=== PATIENT | male | born 1950 | race Caucasian/White ===

== ENCOUNTER 2022-07-27 15:44 | Emergency (ER) | payer MEDICARE, BC ==
[2022-07-27 15:55] VITALS: TEMP 97.6
[2022-07-27] MEDS ORDERED: SODIUM CHLORIDE 0.9% 1,000 ML IV STA (16:26)
[2022-07-27] MEDS ORDERED: KETOROLAC 15 MG/ML 1 ML VIAL IVP STA (16:26)
[2022-07-27] MEDS ORDERED: ONDANSETRON 4 MG/2 ML VIAL IVP STA (16:26)
[2022-07-27 17:34] LABS: Albumin 4.2 g/dL (3.5-5.0); Calcium 9.2 mg/dL (8.4-10.2); HCT 43.8 % (39.0-53.0); HGB 15.6 gm/dL (13.0-17.5); MCH 32.8 pg (25.0-35.0); MCHC 35.6 g/dL (31.0-37.0); MCV 92.2 fL (80.0-100.0); Platelet Count 176 k/uL (150-450); Potassium 3.6 mmol/L (3.5-5.1); RBC 4.75 m/uL (4.30-5.90); RDW 12.4 % (11.5-15.5); Total Protein 6.6 g/dL (6.3-8.2); WBC 8.7 k/uL (3.8-10.6)
[2022-07-27 17:42] LABS: Partial Thromboplastin Time 22.4 sec (22.0-30.0); Prothrombin Time 10.9 sec (9.0-12.0)
[2022-07-27 18:06] LABS: Band Neutrophils % 2 %; Eosinophils # (M) 0.26 k/uL (0-0.7); Lymphocytes # (M) 0.17 k/uL (1.0-4.8); Monocytes # (M) 0.44 k/uL (0-1.0); Neutrophils % (M) 88 %; Nucleated Red Blood Cells 0 /100 WBC (0-0); Total Cells Counted 100
--- NOTE | 2022-07-27 18:14 | US ---
EXAMINATION TYPE: US gallbladder DATE OF EXAM: 07/27/2022 COMPARISON: NONE CLINICAL HISTORY: RUQ/epigastric pain, "gallbladder attack". RUQ pain x 2 days. Patient states he has had GB issues before TECHNIQUE: Multiple sonographic images of the right upper quadrant are obtained. FINDINGS: EXAM MEASUREMENTS: Liver Length: 16.2 cm Gallbladder Wall: 0.31 cm CBD: 1.2 cm Right Kidney: 11.1 x 5.8 x 5.8 cm ACUTE COORDINATOR NOTES: Pancreas: Obscured by bowel gas Liver: wnl Gallbladder: Echogenic material seen inside gallbladder. Possible hypervascular around the wall? Evidence for sonographic Sims's sign: No CBD: Dilated measuring over 1 cm Right Kidney: Cyst visualized mid pole measuring 2.2 x 2.4 x 2.2cm IMPRESSION: There is some echogenic bile. Gallbladder is large with minimal gallbladder wall thickening. This cou ld be some gallbladder dysfunction. Large common bile duct consistent with gallbladder dysfunction.
[2022-07-27 19:42] VITALS: BP 148/96; PULSE 82; RESP 18
[2022-07-27] MEDS ORDERED: PIPERACILLIN-TAZOBACTAM 3.375 GM in SODIUM CHLORIDE 0.9% 100 ML IVPB STA (19:42)
[2022-07-27 20:08] LABS: Appearance,Urine Clear (Clear); Bilirubin,Urine Negative (Negative); Blood,Urine Negative (Negative); Color,Urine Yellow; Glucose,Urine (UA) Negative (Negative); Ketones,Urine Negative (Negative); Leukocyte Esterase,Urine Negative (Negative); Nitrite,Urine Negative (Negative); Protein,Urine Negative (Negative); Specific Gravity,Urine 1.011 (1.001-1.035); Urobilinogen,Urine <2.0 mg/dL (<2.0)
--- NOTE | 2022-07-27 21:03 | ED ---
Abdominal Pain HPI - General Chief Complaint: Abdominal Pain Stated Complaint: gallbladder attack Time Seen by Provider: 07/27/22 16:16 Source: patient Mode of arrival: ambulatory Limitations: no limitations - History of Present Illness Initial Comments: Patient is a 72-year-old male presenting with chief complaint of right upper quadrant pain. Patient has history of "gallbladder attacks", states that on previous ultrasound from years ago there was gallbladder sludge noted and patient was informed that he may need to have his gallbladder taken out if he continues to have issues. Patient states that over the last 2 days he has had an increasing amount of sudden onset of pain. Patient states that at this time he is not having any pain. He admits to nausea with vomiting. No fever or chills. No back pain. No chest pain or difficulty breathing. No diarrhea, hematochezia, melena. No dysuria or hematuria. No palpitations or weakness. - Related Data Allergies Allergy/AdvReac Type Severity Reaction Status Date / Time No Known Allergies Allergy Verified 07/27/22 15:55 Review of Systems ROS Statement: Those systems with pertinent positive or pertinent negative responses have been documented in the HPI. ROS Other: All systems not noted in ROS Statement are negative. Past Medical History Past Medical History: Hypertension Additional Past Medical History / Comment(s): high cholestrol, DVT. GOUT History of Any Multi-Drug Resistant Organisms: None Reported Past Surgical History: No Surgical Hx Reported Past Psychological History: No Psychological Hx Reported Smoking Status: Never smoker Past Alcohol Use History: Occasional Past Drug Use History: None Reported General Exam Limitations: no limitations General appearance: alert, in no apparent distress Head exam: Present: atraumatic, normocephalic, normal inspection Eye exam: Present: normal appearance Neck exam: Present: normal inspection Respiratory exam: Present: normal lung sounds bilaterally. Absent: respiratory distress, wheezes, rales, rhonchi, stridor Cardiovascular Exam: Present: regular rate, normal rhythm, normal heart sounds. Absent: systolic murmur, diastolic murmur, rubs, gallop, clicks GI/Abdominal exam: Present: soft. Absent: distended, tenderness, guarding, rebound, rigid Neurological exam: Present: alert, oriented X3, CN II-XII intact Psychiatric exam: Present: normal affect, normal mood Skin exam: Present: warm, dry, intact, normal color. Absent: rash Course Vital Signs 07/27/22 07/27/22 15:50 19:39 Temperature 97.6 F Pulse Rate 99 82 Respiratory 16 18 Rate Blood Pressure 138/81 148/96 O2 Sat by Pulse 98 99 Oximetry Medical Decision Making - Medical Decision Making Patient is a 72-year-old male with history of present hypertension, hyperlipidemia, gout presenting with chief complaint of right upper quadrant pain. Patient has had episodes of right upper quadrant pain over the last 2 days. No pain at time of presentation. Admits to nausea with no vomiting. On physical examination heart and lungs are clear to auscultation, abdomen is soft, nontender, nondistended. Lab work shows bilirubin 6.0; AST 70; ALT of 452. Alkaline phosphatase 138. Ultrasound shows some echogenic bile gallbladder is large with minimal gallbladder wall thickening, gallbladder wall shows possible hypervascularity. Common bile duct is dilated over 1 cm. Patient will require GI services, we have no GI coverage at this time. [facility] is accepting transfer at this time. I spoke with Dr. Damico customer account specialist. Dr. Hernandez is the accepting physician. Patient is agreeable with this plan. I di scussed this case with my attending Dr. Allison. - Lab Data Result diagrams: 07/27/22 16:59 07/27/22 16:59 Lab Results 07/27/22 07/27/22 07/27/22 Range/Units 16:59 16:59 16:59 WBC 8.7 (3.8-10.6) k/uL RBC 4.75 (4.30-5.90) m/uL Hgb 15.6 (13.0-17.5) gm/dL Hct 43.8 (39.0-53.0) % MCV 92.2 (80.0-100.0) fL MCH 32.8 (25.0-35.0) pg MCHC 35.6 (31.0-37.0) g/dL RDW 12.4 (11.5-15.5) % Plt Count 176 (150-450) k/uL MPV 7.0 Neutrophils % (Manual) 88 % Band Neuts % (Manual) 2 % Lymphocytes % (Manual) 2 % Monocytes % (Manual) 5 % Eosinophils % (Manual) 3 % Neutrophils # (Manual) 7.80 H (1.3-7.7) k/uL Lymphocytes # (Manual) 0.17 L (1.0-4.8) k/uL Monocytes # (Manual) 0.44 (0-1.0) k/uL Eosinophils # (Manual) 0.26 (0-0.7) k/uL Nucleated RBCs 0 (0-0) /100 WBC Manual Slide Review Performed PT 10.9 (9.0-12.0) sec INR 1.0 (<1.2) APTT 22.4 (22.0-30.0) sec Sodium 138 (137-145) mmol/L Potassium 3.6 (3.5-5.1) mmol/L Chloride 102 (98-107) mmol/L Carbon Dioxide 28 (22-30) mmol/L Anion Gap 8 mmol/L BUN 17 (9-20) mg/dL Creatinine 1.05 (0.66-1.25) mg/dL Est GFR (CKD-EPI)AfAm 81 (>60 ml/min/1.73 sqM) Est GFR (CKD-EPI)NonAf 70 (>60 ml/min/1.73 sqM) Glucose 121 H (74-99) mg/dL Plasma Lactic Acid Bulmaro (0.7-2.0) mmol/L Calcium 9.2 (8.4-10.2) mg/dL Total Bilirubin 6.0 H (0.2-1.3) mg/dL AST 701 H (17-59) U/L ALT 452 H (4-49) U/L Alkaline Phosphatase 138 H (38-126) U/L Troponin I (0.000-0.034) ng/mL Total Protein 6.6 (6.3-8.2) g/dL Albumin 4.2 (3.5-5.0) g/dL Amylase 65 (30-110) U/L Lipase 155 (23-300) U/L Urine Color Urine Appearance (Clear) Urine pH (5.0-8.0) Ur Specific [place] (1.001-1.035) Urine Protein (Negative) Urine Glucose (UA) (Negative) Urine Ketones (Negative) Urine Blood (Negative) Urine Nitrite (Negative) Urine Bilirubin (Negative) Urine Urobilinogen (<2.0) mg/dL Ur Leukocyte Esterase (Negative) 07/27/22 07/27/22 07/27/22 Range/Units 16:59 16:59 17:01 WBC (3.8-10.6) k/uL RBC (4.30-5.90) m/uL Hgb (13.0-17.5) gm/dL Hct (39.0-53.0) % MCV (80.0-100.0) fL MCH (25.0-35.0) pg MCHC (31.0-37.0) g/dL RDW (11.5-15.5) % Plt Count (150-450) k/uL MPV Neutrophils % (Manual) % Band Neuts % (Manual) % Lymphocytes % (Manual) % Monocytes % (Manual) % Eosinophils % (Manual) % Neutrophils # (Manual) (1.3-7.7) k/uL Lymphocytes # (Manual) (1.0-4.8) k/uL Monocytes # (Manual) (0-1.0) k/uL Eosinophils # (Manual) (0-0.7) k/uL Nucleated RBCs (0-0) /100 WBC Manual Slide Review PT (9.0-12.0) sec INR (<1.2) APTT (22.0-30.0) sec Sodium (137-145) mmol/L Potassium (3.5-5.1) mmol/L Chloride (98-107) mmol/L Carbon Dioxide (22-30) mmol/L Anion Gap mmol/L BUN (9-20) mg/dL Creatinine (0.66-1.25) mg/dL Est GFR (CKD-EPI)AfAm (>60 ml/min/1.73 sqM) Est GFR (CKD-EPI)NonAf (>60 ml/min/1.73 sqM) Glucose (74-99) mg/dL Plasma Lactic Acid Bulmaro 1.5 (0.7-2.0) mmol/L Calcium (8.4-10.2) mg/dL Total Bilirubin (0.2-1.3) mg/dL AST (17-59) U/L ALT (4-49) U/L Alkaline Phosphatase (38-126) U/L Troponin I <0.012 (0.000-0.034) ng/mL Total Protein (6.3-8.2) g/dL Albumin (3.5-5.0) g/dL Amylase (30-110) U/L Lipase (23-300) U/L Urine Color Yellow Urine Appearance Clear (Clear) Urine pH 7.0 (5.0-8.0) Ur Specific [place] 1.011 (1.001-1.035) Urine Protein Negative (Negative) Urine Glucose (UA) Negative (Negative) Urine Ketones Negative (Negative) Urine Blood Negative (Negative) Urine Nitrite Negative (Negative) Urine Bilirubin Negative (Negative) Urine Urobilinogen <2.0 (<2.0) mg/dL Ur Leukocyte Esterase Negative (Negative) Disposition Clinical Impression: Choledocholithiasis with acute cholecystitis Disposition: OTHER INSTITUTION NOT DEFINED Condition: Fair Referrals: Pierce Hemphill MD [Primary Care Provider] - 1-2 days Time of Disposition: 21:02 - Out of Hospital Transfer - Req. Specs Out of Hospital Transfer - Requested Specifics: Other Emergency Center ([facility])
== END 2022-07-27 22:46 | disposition other institution (70) ==
LOC: EC 15:44
DX: K80.40 Calculus of bile duct with cholecystitis, unspecified, without obstruction (principal); I10 Essential (primary) hypertension
CPT/HCPCS: 36415; 93005; 80053; 82150; 83605; 83690; 84484; 85025; 85610; 85730; 81003; 87040; 76705; 99285; 96365; 96366; 96375 ×2; 96361 ×3; J2543; J2405; J1885

== ENCOUNTER → 2023-03-19 | Outpatient (CLI) | payer MEDICARE, BC ==
--- NOTE | 2023-03-21 18:12 | US ---
EXAMINATION TYPE: US extremity nonvasc mass RT DATE OF EXAM: 03/19/2023 COMPARISON: NONE CLINICAL INDICATION: Male, 72 years old with history of T14.8XXA; patient fell while hiking 2 days ag o TECHNIQUE: Soft tissue scan of right thigh FINDINGS/IMPRESSION: Under extensive bruising was complex pockets of hematoma along with soft tissue swelling. No internal color flow identified.
== END | disposition home or self-care (01) ==
LOC: RADUSWWP 07:38
PROVIDERS: ATTEND Family Medicine
DX: M79.89 Other specified soft tissue disorders (principal); T14.8XXA Other injury of unspecified body region, initial encounter; Y99.8 Other external cause status